=== PATIENT | male | born 1940 | race Caucasian/White ===

== ENCOUNTER 2017-05-09 08:40 | Emergency (ER) | payer MEDICARE, BC ==
[2017-05-09 08:49] VITALS: BP 142/79
--- NOTE | 2017-05-09 09:08 | UC ---
Ear Complaint HPI - HPI Summary HPI Summary: Right ear plugged sensation. he has had cerumen impaction of that right ear in the past as well. no drainage or serious pain. - History of Current Complaint Chief Complaint: UCEar Stated Complaint: RIGHT EAR COMPLAINT Time Seen by Provider: 05/09/17 08:58 Hx Obtained From: Patient Onset/Duration: Gradual Onset, Lasting Days Severity Initially: Mild Severity Currently: Mild Aggravating Factors: Nothing Alleviating Factors: Nothing Associated Signs/Symptoms: Positive: Hearing Loss. Negative: Discharge, Trauma to Ear, URI Symptoms - Allergies/Home Medications Allergies/Adverse Reactions: Allergies Allergy/AdvReac Type Severity Reaction Status Date / Time No Known Allergies Allergy Verified 05/09/17 08:49 PMH/Surg Hx/FS Hx/Imm Hx Previously Healthy: No - prior cerumen impaction. - Surgical History Surgical History: Yes Surgery Procedure, Year, and Place: left knee torn meniscus. back surgery - Family History Known Family History: Positive: Other - no ent related history. - Social History Alcohol Use: None Substance Use Type: None Smoking Status (MU): Never Smoked Tobacco - Immunization History Most Recent Influenza Vaccination: no Most Recent Pneumonia Vaccination: 2017 Review of Systems ENT: Other - right ear "plugged." All Other Systems Reviewed And Are Negative: Yes Physical Exam Triage Information Reviewed: Yes Appearance: Well-Appearing, No Pain Distress, Well-Nourished Vital Signs: Initial Vital Signs Temp 98.3 F 05/09/17 08:46 Pulse 72 05/09/17 08:46 Resp 16 05/09/17 08:46 BP 142/79 05/09/17 08:46 Pulse Ox 98 05/09/17 08:46 Vital Signs Reviewed: Yes Eye Exam: Normal Eyes: Positive: Conjunctiva Clear ENT: Positive: Pharynx normal, Other: - right ear canal inflammed and cerumen impaction.. Negative: Pharyngeal erythema, Nasal congestion, Tonsillar swelling , Tonsillar exudate, Trismus Neck exam: Normal Neck: Positive: Supple, Nontender, No Lymphadenopathy Respiratory Exam: Normal Respiratory: Positive: Lungs clear, Normal breath sounds, No respiratory distress, No accessory muscle use Cardiovascular: Positive: RRR, No Murmur, Pulses Normal Abdomen Description: Positive: Nontender, No Organomegaly, Soft Musculoskeletal: Positive: Strength Intact, ROM Intact, No Edema Neurological: Positive: Alert, Muscle Tone Normal. Negative: Fatigued Skin Exam: Normal Skin: Positive: rashes Ear Complaint Course/Dx - Differential Dx/Diagnosis Provider Diagnoses: right otitis externa. right cerumen impaction Discharge - Discharge Plan Condition: Good Disposition: HOME Prescriptions: Neomyc/Polym/HC 1% OTIC SUSP* [Cortisporin Otic Susp 1%*] 4 drop RIGHT EAR QID # 1 btl Patient Education Materials: Otitis Externa (ED), Cerumen Impaction (ED) Referrals: Ari Duke MD [Primary Care Provider] - If Needed
== END 2017-05-09 09:26 | disposition home or self-care (01) ==
LOC: UCCORT 08:40
DX: H61.21 Impacted cerumen, right ear (principal); H60.91 Unspecified otitis externa, right ear
CPT/HCPCS: 99203; G0463

== ENCOUNTER 2017-05-11 08:30 | Emergency (ER) | payer MEDICARE, BC ==
[2017-05-11 08:39] VITALS: BP 154/96
--- NOTE | 2017-05-11 08:52 | UC ---
Ear Complaint HPI - HPI Summary HPI Summary: 76 year old male with ear complaint. PT SEEN 2 DAYS AGO FOR RIGHT EAR PAIN. PT PRESENTS TODAY FOR B/L EAR PAIN AND DECREASED HEARING. RIGHT EAR PAINFUL WITH CHEWING. Had irrigation multiple times 2 days ago and placed on ear drops and not improved. Now with left ear decreased hearing as well. No vertigo. No CAN. No falls. No drainage. [ End ] - History of Current Complaint Chief Complaint: UCEar Stated Complaint: BILATERAL EAR PAIN Time Seen by Provider: 05/11/17 08:48 Hx Obtained From: Patient Onset/Duration: Gradual Onset Severity Initially: Moderate Associated Signs/Symptoms: Positive: Hearing Loss - Allergies/Home Medications Allergies/Adverse Reactions: Allergies Allergy/AdvReac Type Severity Reaction Status Date / Time No Known Allergies Allergy Verified 05/11/17 08:39 PMH/Surg Hx/FS Hx/Imm Hx Previously Healthy: Yes - Surgical History Surgical History: Yes Surgery Procedure, Year, and Place: left knee torn meniscus. back surgery - Family History Known Family History: Positive: Other - no ent related history. - Social History Occupation: Retired Alcohol Use: None Substance Use Type: None Smoking Status (MU): Never Smoked Tobacco - Immunization History Most Recent Influenza Vaccination: no Most Recent Pneumonia Vaccination: 2017 Review of Systems ENT: Ear Ache, Other - hearing loss All Other Systems Reviewed And Are Negative: Yes Physical Exam Triage Information Reviewed: Yes Appearance: Well-Appearing, No Pain Distress, Well-Nourished Vital Signs: Initial Vital Signs Temp 98.1 F 05/11/17 08:32 Pulse 64 05/11/17 08:32 Resp 20 05/11/17 08:32 BP 154/96 05/11/17 08:32 Pulse Ox 97 05/11/17 08:32 Vital Signs Reviewed: Yes Eye Exam: Normal ENT Exam: Normal ENT: Positive: TM dull - left with moderate serous effusion but no wax in canal or injection in TM., TM red - Right with significant ear canal edema and tenderness to exam with otoscope. with the narrow canal could only inspect pinpoint aspect of canal which appeared injected. Dental Exam: Normal Neck exam: Normal Neck: Positive: 1 Respiratory Exam: Normal Cardiovascular Exam: Normal Musculoskeletal Exam: Normal Neurological Exam: Normal Psychological Exam: Normal Skin Exam: Normal Ear Complaint Course/Dx - Course Course Of Treatment: He was not awarwe he was referred to ENT previously -- now he is aware and we set up appt for Sunday afternoon. Start orals and cont drops. - Differential Dx/Diagnosis Differential Diagnosis/HQI/PQRI: Cerumen Impaction, Otitis Externa, Otitis Media Provider Diagnoses: Right AOM / Swimmers Ear with hearing loss Discharge - Discharge Plan Condition: Good Disposition: HOME Prescriptions: Amoxicillin PO (*) [Amoxicillin 875 MG (*)] 875 mg PO BID #20 tab Patient Education Materials: Hearing Loss (ED) Referrals: Ari Duke MD [Primary Care Provider] - 4 Days Brian Pickett MD [Medical Doctor] - 3 Days (Sunday at 3 pm for your ENT Specialist appointment ) Additional Instructions: You have been referred to ENT. Please go to your appt. Finish your prescribed medications please.
== END 2017-05-11 09:03 | disposition home or self-care (01) ==
LOC: UCCORT 08:30
DX: H66.91 Otitis media, unspecified, right ear (principal); H60.339 Swimmer's ear, unspecified ear; H91.90 Unspecified hearing loss, unspecified ear
CPT/HCPCS: 99212; G0463

== ENCOUNTER 2018-11-28 08:21 | Emergency (ER) | payer MEDICARE, BC ==
--- NOTE | 2018-11-28 08:46 | UC ---
Abdominal Pain Male HPI - HPI Summary HPI Summary: Patient presented to urgent care with 2-3 days of progressive gnawing epigastric , right upper quadrant pain. Pt unable to described pain type. Patient states he's never had anything like this before. It does wake him up at night. Patient with mild nausea but is eating and drinking okay. No change in pain with diet. Patient with a normal formed nonblack and nonbloody bowel movement this morning. No urinary symptoms. No radiation. Patient without history of anything similar. No trauma. Patient has taken 2 doses of Aleve without improvement. Patient also reports some left lower back pain but does not seem to connect the abdominal pain. No history of similar. No belching. Patient denies chest pain or shortness of breath. Pain is worse with lying flat. He states it does wake him up at night. She is on no prescribed medications. - History of Current Complaint Stated Complaint: UPSET STOMACH, BACK PAIN Hx Obtained From: Patient Onset/Duration: Gradual Onset Severity Initially: Moderate Severity Currently: Moderate Pain Intensity: 6 - Allergies/Home Medications Allergies/Adverse Reactions: Allergies Allergy/AdvReac Type Severity Reaction Status Date / Time seasonal Allergy Eyes Uncoded 11/28/18 08:48 Itchy/Swollen/Red/Watery Home Medications: Home Medications Levocetirizine Dihydrochloride [Xyzal] 5 mg PO DAILY 11/28/18 [History Confirmed 11/28/18] Naproxen Sodium [Aleve] 440 mg PO ONCE 11/28/18 [History Confirmed 11/28/18] PMH/Surg Hx/FS Hx/Imm Hx Previously Healthy: Yes - Surgical History Surgical History: Yes Surgery Procedure, Year, and Place: left knee torn meniscus. back surgery - Family History Known Family History: Positive: Other - no ent related history., Non- Contributory - Social History Occupation: Retired Lives: With Family Alcohol Use: None Substance Use Type: None Smoking Status (MU): Never Smoked Tobacco - Immunization History Most Recent Influenza Vaccination: no Most Recent Pneumonia Vaccination: 2017 Review of Systems All Other Systems Reviewed And Are Negative: Yes Constitutional: Positive: Negative Skin: Positive: Negative Eyes: Positive: Negative ENT: Positive: Negative Respiratory: Positive: Negative Cardiovascular: Positive: Negative Gastrointestinal: Positive: Abdominal Pain, Nausea. Negative: Diarrhea Genitourinary: Positive: Negative Physical Exam - Summary Physical Exam Summary: Vital Signs Reviewed: Yes A+Ox3, no distress Eyes: Conjunctiva Clear, PHYLICIA. EOM intact and full ENT: Hearing grossly normal TM x 2 clear, mmoist, uvula midline, no exudate, no erythema Neck: Positive: Supple Respiratory: Positive: No respiratory distress, No accessory muscle use + CTA throughout no w/r Cardiovascular: RRR nl s1, s2 no m/r CBT <2 sec abd soft +/decreased BS + TTP epigastric, RUQ pain no guarding, no rebound, no CVA. no mass, no pulsation Musculoskeletal Exam: BENNETT x 4 without difficulty Strength Intact, ROM Intact Neurological: Positive: Alert, + sensation throughout Psychological: Positive: Normal Response To Family Skin: Positive: no rash, no ecchymosis Triage Information Reviewed: Yes Diagnostics - EKG Cardiac Rate: NL - 58 Cardiac Rhythm: Sinus: Normal ST Segment: Normal EKG Comparison: Other - no old for comparison Abd Pain Male Course/Dx - Course Course Of Treatment: Patient presents with 2-3 days progressive epigastric right upper quadrant. Patient's taken Aleve without improvement. Patient with mild nausea but no vomiting. Patient denies fevers or chills. No belching. Patient without any urinary symptoms or diarrhea. On exam vital signs are stable. Patient does have epigastric right upper quadrant pain is worse with movement and direct palpation. No rebound or guarding. Differential includes gastritis, cholecystitis, pancreatitis. Recommend patient to emergency department for further evaluation treatment. Patient states agreement and understanding of plan. Patient states he was going to go there originally but decided to come here first. Spoke to the ED provider, Dr. Davis, who is aware patient's coming. Of note I did do an EKG that was non-concerning for acute process BP elevated - pt in discomfort -related to condition - Differential Dx/Clinical Impression Provider Diagnosis: Epigastric abdominal pain Discharge - Sign-Out/Discharge Documenting (check all that apply): Patient Departure All imaging exams completed and their final reports reviewed: No Studies - Discharge Plan Condition: Stable Disposition: HOME-RECOMMEND TO ED Patient Education Materials: Acute Abdominal Pain (ED) Referrals: Ari Duke MD [Primary Care Provider] - Additional Instructions: The doctor that evaluated you today thinks that you need additional testing that can be completed the emergency department. It is recommended that you go directly to emergency department for further evaluation. This evaluation may include blood work or imaging. This testing will be directed and decided by the provider that evaluate you at the emergency department. If pain becomes worse, you feel lightheaded, you have uncontrolled vomiting, or you have any other concerns while you are being driven to emergency department as recommended to pullover and contact 911. - Billing Disposition and Condition Condition: STABLE Disposition: Home-Recommend to ED
[2018-11-28 08:47] VITALS: BP 154/79
== END 2018-11-28 09:10 | disposition home health service (06) ==
LOC: UCCORT 08:21
DX: R10.13 Epigastric pain (principal); R10.9 Unspecified abdominal pain; J30.2 Other seasonal allergic rhinitis
CPT/HCPCS: 93005; 99212; G0463

== ENCOUNTER 2018-12-07 08:48 | Emergency (ER) | payer MEDICARE, BC ==
--- OUTSIDE RECORDS SUMMARY | 2018-12-07 08:55 | XMS REPORT | Continuity of Care Document ---
:1940 External Reference #:[id number] Author Name Candido Van Care Team Providers Name Role Phone Ari Dkue MD Primary Care Physician Unavailable Payers Date Identification Numbers Payment Provider Subscriber Effective: 2005 Policy Number: [id number] Medicare Francisco J Rangel Group Name: Medicare [address] PayID: [id number] [place] [address] Policy Number: [id number] [facility] Marietta Rangel PayID: [id number] [address] [place] [address] Policy Number: [id number] [facility] Francisco J Rangel Group Name: [facility] [address] PayID: [id number] [place] [address] Advance Directives Description No Information Available Problems Active Problems Provider Date Chronic otitis externa Christiano Pickett M.D. Onset: 05/14/2017 Benign prostatic hypertrophy without Onset: 03/12/2015 outflow obstruction Lateral epicondylitis Onset: 02/05/2012 Gastroesophageal reflux disease Onset: 02/05/2013 Family History Date Family Member(s) Observation Comments General No Current Problems Father due to Heart Attack Mother do to Aneurysm Social History Type Date Description Comments Sex Unknown Marital Status Lives With Occupation Retired Tobacco Use Start: Unknown Never Smoked Cigarettes Tobacco Use Start: Unknown Never Smoked Cigars Tobacco Use Start: Unknown Never Smoked A Pipe Smokeless Tobacco Never Used Smokeless Tobacco ETOH Use Denies alcohol use Tobacco Use Reviewed: 03/02/17 Patient has never smoked Smoking Status Reviewed: 05/14/17 Patient has never smoked Exercise Type/Frequency Does not exercise Allergies, Adverse Reactions, Alerts Description No Known Drug Allergies Medications Active Medications SIG Qnty Indications Ordering Provider Date Neomycin/Polymyxin/Hydr 3 drops 3 times Unknown ocortisone (Otic) daily for 3 days Suspension Sucralfate Take 1 Tablet By Unknown 1gm Tablets Mouth AT 7:30Am, 11:30Am, 4:30PM, And 9:00PM Pantoprazole Sodium Take 1 Tablet By Unknown 40mg Mouth Every Day Tablets DR Metronidazole Take 1 Tablet By Unknown 500mg Tablets Mouth Every 8 Hours Methocarbamol Take 1 Tablet By Unknown 500mg Tablets Mouth Twice A Day as Needed For Muscle Pain Amlodipine Besylate Take 1 Tablet By Ari 10mg Mouth Every Day MD Srikanth Tablets History Medications Amoxicillin/Clavulanate 1 by mouth 20tabs H60.8x1 Christiano 05/14/2017 - Potassium twice a day [facility]ett 12/03/2018 875-125mg Tablets Loratadine 1 by mouth 30tabs 477.9 Ari 12/04/2014 - 10mg Tablets every day MD Srikanth 02/22/2015 Stendra use daily as 3tabs 607.84 Ari 02/18/2014 - 200mg Tablets needed MD Srikanth 12/04/2014 Viagra use daily 6tabs Ari 02/05/2013 - 100mg Tablets prn MD Srikanth 02/18/2014 Motrin Ib as needed 60tabs Unknown - 200mg Tablets 05/13/2017 Augmentin one by mouth Unknown - 875-125mg Tablets every 12 12/03/2018 hours for ten days started 4 days ago Ibuprofen take 1 Unknown - 600mg Tablets tablet by 12/04/2014 mouth four times a day with food for pain Immunizations CPT Code Status Date Vaccine Lot # [id number] Given 03/02/2017 Pneumococcal Conjugate Vaccine 13 Valent For Intramuscular Use [id number] Given 02/05/2012 Pneumonia Vaccine [id number] Given 02/05/2012 Tdap - Tetanus/Diptheria/Acellular Pertussis Vital Signs Date Vital Result Comment 12/03/2018 10:55am Weight 210.00 lb Heart Rate 74 /min BP Systolic 144 mmHg BP Diastolic 70 mmHg Respiratory Rate 16 /min O2 % BldC Oximetry 98 % room air 03/14/2018 10:08am Height 69 inches Weight 202.00 lb Heart Rate 48 /min BP Systolic 154 mmHg BP Diastolic 70 mmHg Respiratory Rate 16 /min BMI (Body Mass Index) 29.8 kg/m2 05/14/2017 3:15pm Weight 202.00 lb Heart Rate 96 /min BP Systolic Sitting 148 mmHg BP Diastolic Sitting 82 mmHg Respiratory Rate 16 /min O2 % BldC Oximetry 96 % 03/02/2017 8:23am Height 68.25 inches Weight 200.50 lb Heart Rate 56 /min BP Systolic 122 mmHg BP Diastolic 68 mmHg Respiratory Rate 16 /min Body Temperature 97.0 F BMI (Body Mass Index) 30.3 kg/m2 03/01/2016 11:11am Height 68.25 inches Weight 206.00 lb Heart Rate 68 /min BP Systolic 146 mmHg BP Diastolic 80 mmHg Respiratory Rate 16 /min Body Temperature 97.9 F BMI (Body Mass Index) 31.1 kg/m2 02/22/2015 8:57am Height 68 inches Weight 198.00 lb Heart Rate 56 /min BP Systolic 126 mmHg BP Diastolic 72 mmHg Respiratory Rate 16 /min Body Temperature 97.7 F BMI (Body Mass Index) 30.1 kg/m2 12/04/2014 8:09am Weight 208.50 lb BP Systolic 136 mmHg BP Diastolic 80 mmHg 02/18/2014 1:10pm Height 67.75 inches Weight 199.50 lb Heart Rate 76 /min BP Systolic 108 mmHg BP Diastolic 70 mmHg Respiratory Rate 16 /min Body Temperature 97.8 F BMI (Body Mass Index) 30.6 kg/m2 02/05/2014 1:38pm Height 70 inches 5'10" Weight 200.00 lb Heart Rate 54 /min BP Systolic 155 mmHg BP Diastolic 84 mmHg BMI (Body Mass Index) 28.7 kg/m2 02/05/2013 8:19am Height 68 inches Weight 198.00 lb Heart Rate 68 /min BP Systolic 130 mmHg BP Diastolic 74 mmHg Respiratory Rate 16 /min Body Temperature 97.5 F BMI (Body Mass Index) 30.1 kg/m2 02/05/2012 8:25am Height 68 inches Weight 195.50 lb Heart Rate 76 /min BP Systolic 126 mmHg BP Diastolic 72 mmHg Respiratory Rate 16 /min Body Temperature 97.4 F BMI (Body Mass Index) 29.7 kg/m2 Results Test Date Facility Test Result H/L Range Note Laboratory test 03/14/2018 N2N/CCD Import Prostate 12.00 ng/mL 1, 2 finding Specific Antigen Basic Metabolic 03/14/2018 N2N/CCD Import Anion Gap 4 mEq/L Low 8-16 Panel BUN 23 mg/dL High 7-18 BUN/Creat 23.0 ratio Calcium 9.0 mg/dL 8.5-10.1 Carbon Dioxide 29 mmol/L 21-32 Chloride 106 mmol/L 98-107 Creatinine 1.0 mg/dL 0.6-1.3 Glom Filtration Rate, Estimate >60 mL/min Glucose 94 mg/dL 74-106 If >60 mL/min 3 Potassium 4.0 mmol/L 3.5-5.1 Sodium 139 mmol/L 136-145 CBC 03/14/2018 N2N/CCD Import Hematocrit 42.0 % 38-48 Hemoglobin 13.9 gm/dL 12.8-17 Mean Cell Volume 90.1 fl 80-96 Mean Corpuscular HGB 29.8 pg 27-33 Mean Corpuscular HGB Conc 33.1 g/dL 31.7-36 Mean Platelet Volume 10.1 fL 6.6-10.6 Platelet Count 302 K/uL 155-360 Red Blood Count 4.66 M/uL 4.2-5.8 Red Cell Distri Width %CV 15.2 % 11.6-15.8 White Blood Count 10.1 K/uL 3.4-10.5 LDL Cholesterol Profile 03/14/2018 N2N/CCD Import Cholesterol 202 mg/dL High 4 HDL Cholesterol 48 mg/dL 5 LDL-Cholesterol 137 mg/dL 6 Triglycerides 83 mg/dL 7 Laboratory test 03/05/2017 N2N/CCD Import Prostate 9.17 ng/mL 8, 9 finding Specific Antigen Basic Metabolic 03/05/2017 N2N/CCD Import Anion Gap 5 mEq/L Low 8-16 Panel BUN 16 mg/dL 7-18 BUN/Creat 17.7 ratio Calcium 8.8 mg/dL 8.5-10.1 Carbon Dioxide 28 mmol/L 21-32 Chloride 106 mmol/L 98-107 Creatinine 0.9 mg/dL 0.6-1.3 Glom Filtration Rate, Estimate >60 mL/min Glucose 92 mg/dL 74-106 If >60 mL/min 10 Potassium 4.1 mmol/L 3.5-5.1 Sodium 139 mmol/L 136-145 CBC 03/05/2017 N2N/[employer] Import Hematocrit 41.3 % 38-48 Hemoglobin 13.8 gm/dL 12.8-17 Mean Cell Volume 89.2 fl 80-96 Mean Corpuscular HGB 29.8 pg 27-33 Mean Corpuscular HGB Conc 33.4 g/dL 31.7-36 Mean Platelet Volume 10.6 fL 6.6-10.6 Platelet Count 288 K/uL 150-400 Red Blood Count 4.63 M/uL 4.2-5.8 Red Cell Distri Width %CV 14.9 % 11.6-15.8 White Blood Count 8.3 K/uL 3.4-10.5 LDL Cholesterol Profile 03/05/2017 N2N/[employer] Import Cholesterol 190 mg/dL 11 HDL Cholesterol 47 mg/dL 12 LDL-Cholesterol 125 mg/dL 13 Triglycerides 90 mg/dL 14 LDL Cholesterol Profile 03/02/2016 N2N/[employer] Import Cholesterol 217 mg/dL High 15 HDL Cholesterol 38 mg/dL Low 16 LDL-Cholesterol 154 mg/dL 17 Triglycerides 126 mg/dL 18 CBC 03/02/2016 N2N/[employer] Import Hematocrit 42.4 % 38-48 Hemoglobin 14.3 gm/dL 12.8-17 Mean Cell Volume 89.1 fl 80-96 Mean Corpuscular HGB 30.0 pg 27-33 Mean Corpuscular HGB Conc 33.7 g/dL 31.7-36 Mean Platelet Volume 10.6 fL 6.6-10.6 Platelet Count 331 K/uL 150-400 Red Blood Count 4.76 M/uL 4.2-5.8 Red Cell Distri Width %CV 14.8 % 11.6-15.8 White Blood Count 8.9 K/uL 3.4-10.5 Basic Metabolic Panel 03/02/2016 N2N/[employer] Import Anion Gap 6 mEq/L Low 8- 16 BUN 19 mg/dL High 7-18 BUN/Creat 17.2 ratio Calcium 9.1 mg/dL 8.5-10.1 Carbon Dioxide 26 mmol/L 21-32 Chloride 104 mmol/L 98-107 Creatinine 1.1 mg/dL 0.6-1.3 Glom Filtration Rate, Estimate >60 mL/min Glucose 86 mg/dL 74-106 If >60 mL/min 19 Potassium 4.2 mmol/L 3.5-5.1 Sodium 136 mmol/L 136-145 Laboratory test 12/04/2014 N2N/CCD Import Prostate 9.25 ng/mL 20 finding Specific Antigen Laboratory test 02/19/2014 N2N/CCD Import Prostate 7.70 ng/mL High 0-4 21 finding Specific Antigen Basic Metabolic 02/19/2014 N2N/CCD Import Anion Gap 11 mEq/L 8-16 Panel BUN 20 mg/dL 5-23 BUN/Creat 25.0 ratio Calcium 9.5 mg/dL 8.5-10.1 Carbon Dioxide 25 mEq/L 18-29 Chloride 107 mmol/L 98-107 Creatinine 0.8 mg/dL 0.5-1.4 Glom Filtration Rate, Estimate >60 mL/min Glucose 89 mg/dL 76-115 If >60 mL/min 22 Potassium 4.0 mmol/L 3.5-5.1 Sodium 139 mmol/L 136-145 CBC 02/19/2014 N2N/CCD Import Hematocrit 39.4 % 38-48 Hemoglobin 13.4 gm/dL 12.8-17 Mean Cell Volume 90.6 fl 80-96 Mean Corpuscular HGB 30.8 pg 27-33 Mean Corpuscular HGB Conc 34.0 g/dL 31.7-36 Mean Platelet Volume 10.4 fL 6.6-10.6 Platelet Count 298 K/uL 150-400 Red Blood Count 4.35 M/uL 4.2-5.8 Red Cell Distri Width %CV 14.9 % 11.6-15.8 White Blood Count 7.7 K/uL 3.4-10.5 LDL Cholesterol Profile 02/19/2014 N2N/CCD Import Cholesterol 200 mg/dL 120-200 HDL Cholesterol 42 mg/dL 29-83 LDL-Cholesterol 142 mg/dL 62-185 Triglycerides 79 mg/dL 16-231 CBC 02/11/2013 N2N/CCD Import Hematocrit 42.7 % 38-48 Hemoglobin 14.6 gm/dL 12.8-17 Mean Cell Volume 88.2 fl 80-96 Mean Corpuscular HGB 30.2 pg 27-33 Mean Corpuscular HGB Conc 34.2 g/dL 31.7-36 Mean Platelet Volume 9.8 fL 6.6-10.6 Platelet Count 321 K/uL 150-400 Red Blood Count 4.84 M/uL 4.2-5.8 Red Cell Distri Width %CV 14.5 % 11.6-15.8 White Blood Count 8.9 K/uL 3.4-10.5 Comprehensive Metabolic Panel 02/11/2013 N2N/CCD Import Alb/Glob 1.1 ratio Albumin 3.8 g/dL 3.5-5 Alkaline Phosphatase 86 U/L 50-136 Anion Gap 11 mEq/L 8-16 BUN 17 mg/dL 5-23 BUN/Creat 17.0 ratio Bilirubin,Total 0.6 mg/dL 0.2-1.2 Calcium 9.2 mg/dL 8.5-10.1 Carbon Dioxide 28 mEq/L 18-29 Chloride 105 mmol/L 98-107 Creatinine 1.0 mg/dL 0.5-1.4 Globulin 3.5 g/dL 1.9-4.3 Glom Filtration Rate, Estimate >60 mL/min Glucose 87 mg/dL 76-115 If >60 mL/min 23 Potassium 3.8 mmol/L 3.5-5.1 SGPT/Alt 26 U/L Low 30-65 Sgot/Ast 19 U/L 16-40 Sodium 140 mmol/L 136-145 Total Protein 7.3 g/dL 6.3-8 LDL Cholesterol 02/11/2013 N2N/CCD Import Cholesterol 214 mg/dL High 120- 200 Profile HDL Cholesterol 39 mg/dL 29-83 LDL-Cholesterol 158 mg/dL 62-185 Triglycerides 87 mg/dL 16-231 PSA (Free and Total) 06/04/2012 N2N/CCD Import %Free PSA 22.8 % 24 PSA,Free 2.14 N/Ang/mL 25 Prostate-specific antigen,Seru 9.4 ng/mL High 0-4 26 Laboratory test 02/05/2012 N2N/CCD Import Prostate Specific 4.84 ng/mL High 0-4 27 finding Antigen 1 E78.5, R97.20, Z00.00 2 THIS ASSAY IS NOT INTENDED A CANCER SCREENING TEST The concentration of PSA in a given specimen, determined with assays from different manufacturers, can vary due to differences in assay methods and reagent specificity. Values obtained from different assay methods cannot be used interchangeably. Method: [employer] System[employer] Chemiluminescent immunoassay. 3 Note: Persistent reduction for 3 months or more in an eGFR <60 mL/min/1.73 m2 defines CKD. Patients with eGFR values >/=60 mL/min/1.73 m2 may also have CKD if evidence of persistent proteinuria is present. The original MDRD equation for estimated GFR is not valid for patients less than 18 years of age. Additional information may be found at www.kdoqi.org. 4 Reference Guidelines*: Desirable: ........... < 200 mg/dL Borderline High: ..... 200-239 mg/dL High: ................ >=240 mg/dL * The National Cholesterol Education Program (NCEP) 5 Reference Guidelines*: Low HDL: ..... < 40 mg/dL Normal: ..... 40-60 mg/dL Desirable: ... > 60 mg/dL *The National Cholesterol Education Program(NCEP) 6 Reference Guidelines*: Optimal:........... <100 mg/dL Near Optimal....... 100-129 mg/dL Borderline High.... 130-159 mg/dL High............... 160-189 mg/dL Very High.......... >=190 mg/dL * Source: National Cholesterol Education Program (NCEP) 7 Reference Guidelines*: Normal: ............. < 150 mg/dL Borderline High: .... 150-199 mg/dL High: ............... 200-499 mg/dL Very High: .......... > 500 mg/dL * Source: National Cholesterol Education Program (NCEP) 8 Z12.5,E78.5,Z00.01 9 THIS ASSAY IS NOT INTENDED A CANCER SCREENING TEST The concentration of PSA in a given specimen, determined with assays from different manufacturers, can vary due to differences in assay methods and reagent specificity. Values obtained from different assay methods cannot be used interchangeably. Method: [employer] [place] Chemiluminescent immunoassay. 10 Note: Persistent reduction for 3 months or more in an eGFR <60 mL/min/1.73 m2 defines CKD. Patients with eGFR values >/=60 mL/min/1.73 m2 may also have CKD if evidence of persistent proteinuria is present. The original MDRD equation for estimated GFR is not valid for patients less than 18 years of age. Additional information may be found at www.kdoqi.org. 11 Reference Guidelines*: Desirable: ........... < 200 mg/dL Borderline High: ..... 200-239 mg/dL High: ................ >=240 mg/dL * The National Cholesterol Education Program (NCEP) 12 Reference Guidelines*: Low HDL: ..... < 40 mg/dL Normal: ..... 40-60 mg/dL Desirable: ... > 60 mg/dL *The National Cholesterol Education Program(NCEP) 13 Reference Guidelines*: Optimal:........... <100 mg/dL Near Optimal....... 100-129 mg/dL Borderline High.... 130-159 mg/dL High............... 160-189 mg/dL Very High.......... >=190 mg/dL * Source: National Cholesterol Education Program (NCEP) 14 Reference Guidelines*: Normal: ............. < 150 mg/dL Borderline High: .... 150-199 mg/dL High: ............... 200-499 mg/dL Very High: .......... > 500 mg/dL * Source: National Cholesterol Education Program (NCEP) 15 Reference Guidelines*: Desirable: ........... < 200 mg/dL Borderline High: ..... 200-239 mg/dL High: ................ >=240 mg/dL * The National Cholesterol Education Program (NCEP) 16 Reference Guidelines*: Low HDL: ..... < 40 mg/dL Normal: ..... 40-60 mg/dL Desirable: ... > 60 mg/dL *The National Cholesterol Education Program(NCEP) 17 Reference Guidelines*: Optimal:........... <100 mg/dL Near Optimal....... 100-129 mg/dL Borderline High.... 130-159 mg/dL High............... 160-189 mg/dL Very High.......... >=190 mg/dL * Source: National Cholesterol Education Program (NCEP) 18 Reference Guidelines*: Normal: ............. < 150 mg/dL Borderline High: .... 150-199 mg/dL High: ............... 200-499 mg/dL Very High: .......... > 500 mg/dL * Source: National Cholesterol Education Program (NCEP) 19 Note: Persistent reduction for 3 months or more in an eGFR <60 mL/min/1.73 m2 defines CKD. Patients with eGFR values >/=60 mL/min/1.73 m2 may also have CKD if evidence of persistent proteinuria is present. The original MDRD equation for estimated GFR is not valid for patients less than 18 years of age. Additional information may be found at www.kdoqi.org. 20 THIS ASSAY IS NOT INTENDED A CANCER SCREENING TEST The concentration of PSA in a given specimen, determined with assays from different manufacturers, can vary due to differences in assay methods and reagent specificity. Values obtained from different assay methods cannot be used interchangeably. 21 THIS ASSAY IS NOT INTENDED A CANCER SCREENING TEST The concentration of PSA in a given specimen, determined with assays from different manufacturers, can vary due to differences in assay methods and reagent specificity. Values obtained from different assay methods cannot be used interchangeably. 22 Note: Persistent reduction for 3 months or more in an eGFR <60 mL/min/1.73 m2 defines CKD. Patients with eGFR values >/=60 mL/min/1.73 m2 may also have CKD if evidence of persistent proteinuria is present. The original MDRD equation for estimated GFR is not valid for patients less than 18 years of age. Additional information may be found at www.kdoqi.org. 23 Note: Persistent reduction for 3 months or more in an eGFR <60 mL/min/1.73 m2 defines CKD. Patients with eGFR values >/=60 mL/min/1.73 m2 may also have CKD if evidence of persistent proteinuria is present. The original MDRD equation for estimated GFR is not valid for patients less than 18 years of age. Additional information may be found at www.kdoqi.org. 24 The table below lists the probability of prostate cancer for men with non-suspicious [place] results and total PSA between 4 and 10 ng/mL, by patient age (Mickey et al, ANTOINE 1998, 279:1542). % Free PSA 50-64 yr 65-75 yr 0.00-10.00% 56% 55% 10.01-15.00% 24% 35% 15.01-20.00% 17% 23% 20.01-25.00% 10% 20% >25.00% 5% 9% Please note: Mickey et al did not make specific recommendations regarding the use of percent free PSA for any other population of men. Performed at: - [facility] [id number] Sightseeing Guide: Tresa Mars MD, Phone: [phone] Rodney ECLIA methodology. 26 [place] ECLIA methodology. According to the [place] [employer], Serum PSA should decrease and remain at undetectable levels after radical prostatectomy. The AUA defines biochemical recurrence as an initial PSA value 0.2 ng/mL or greater followed by a subsequent confirmatory PSA value 0.2 ng/mL or greater. Values obtained with different assay methods or kits cannot be used interchangeably. Results cannot be interpreted as absolute evidence of the presence or absence of malignant disease. 27 THIS ASSAY IS NOT INTENDED A CANCER SCREENING TEST The concentration of PSA in a given specimen, determined with assays from different manufacturers, can vary due to differences in assay methods and reagent specificity. Values obtained from different assay methods cannot be used interchangeably. Procedures Date Code Description Status 02/05/2013 89581 Visual funct screen test, automated Completed 02/05/2013 57166 Pure Tone-Air Condition Only Completed 02/05/2012 81882 Visual funct screen test, automated Completed 02/05/2012 98028 Pure Tone-Air Condition Only Completed 01/31/2011 28305 Visual funct screen test, automated Completed 01/31/2011 97553 Pure Tone-Air Condition Only Completed 06/23/2009 35649 Remove Impacted Cerumen Completed 12/26/2006 66372 Admin Of Inj 2008 Only Completed Encounters Type Date Location Provider Dx Diagnosis Office Visit 05/14/2017 [facility] H[facility].8x1 Other otitis externa, 3:00p C[facility]us[facility] right ear [place] Office Visit 02/05/2014 [facility], 715.96 Osteoarthrosis Unspec 1:00[facility] C.MFrancisco Lower Leg Plan of Treatment Future Appointment(s):03/17/2019 8:15 am - Ari Duke MD at [facility] [place] [facility]
[2018-12-07 09:03] VITALS: BP 116/60
--- NOTE | 2018-12-07 09:29 | UC ---
Knee Pain HPI - HPI Summary HPI Summary: left knee pain x 2 days , sudden onset pain is severe 8 out of 10 , no radiation of the pain , worse with standing and walking , better with rest and elevation no known injury , + swelling, no redness, no hx of Gout - History of Current Complaint Chief Complaint: UCLowerExtremity Stated Complaint: LEFT KNEE INJURY Time Seen by Provider: 12/07/18 09:03 Hx Obtained From: Patient Onset/Duration: Gradual Onset, Lasting Days - 2, Still Present Severity Initially: Severe Severity Currently: Severe Pain Intensity: 8 Character: Aching Aggravating Factor(s): Movement, Weight Bearing, Prolonged Standing Alleviating Factor(s): Rest Associated Signs And Symptoms: Positive: Swelling. Negative: Redness, Bruising , Fever, Weakness, Numbness, Tingling - Allergies/Home Medications Allergies/Adverse Reactions: Allergies Allergy/AdvReac Type Severity Reaction Status Date / Time seasonal Allergy Eyes Uncoded 12/07/18 08:58 Itchy/Swollen/Red/Watery PMH/Surg Hx/FS Hx/Imm Hx - Additional Past Medical History Additional PMH: pancreatitis - Surgical History Surgical History: Yes Surgery Procedure, Year, and Place: left knee torn meniscus. back surgery - Family History Known Family History: Positive: Other - no ent related history., Non- Contributory - Social History Alcohol Use: None Substance Use Type: None Smoking Status (MU): Never Smoked Tobacco - Immunization History Most Recent Influenza Vaccination: no Most Recent Pneumonia Vaccination: 2017 Review of Systems All Other Systems Reviewed And Are Negative: Yes Constitutional: Positive: Negative Skin: Positive: Negative Eyes: Positive: Negative ENT: Positive: Negative Respiratory: Positive: Negative Is Patient Immunocompromised?: No Physical Exam Triage Information Reviewed: Yes Appearance: Well-Nourished, Pain Distress Vital Signs: Initial Vital Signs Temp 98.2 F 12/07/18 08:59 Pulse 62 12/07/18 08:59 Resp 18 12/07/18 08:59 BP 116/60 12/07/18 08:59 Pulse Ox 97 12/07/18 08:59 Vital Signs Reviewed: Yes Eye Exam: Normal Eyes: Positive: Conjunctiva Clear ENT: Positive: Normal ENT inspection, Hearing grossly normal, Pharynx normal Neck: Positive: Supple, Nontender, No Lymphadenopathy Respiratory: Positive: Chest non-tender, Lungs clear, Normal breath sounds Cardiovascular: Positive: RRR, No Murmur, Pulses Normal Musculoskeletal: Positive: Other: - left knee : + swelling, mild effusion, diffuse tenderness, no erythema, , pain with flexion and extension, stable ligaments , Diagnostics - Radiology No standard instances Radiology Interpretation Completed By: Radiologist Summary of Radiographic Findings: xray left knee : IMPRESSION: Chondrocalcinosis. Degenerative changes medial compartment left knee. Knee Pain Course/Dx - Differential Dx/Diagnosis Provider Diagnosis: Left knee pain Discharge - Sign-Out/Discharge Documenting (check all that apply): Patient Departure All imaging exams completed and their final reports reviewed: Yes - Discharge Plan Condition: Stable Disposition: HOME Prescriptions: predniSONE TAB* [Deltasone 20 MG TAB*] 40 mg PO DAILY #14 tab Patient Education Materials: Gout (ED), Knee Pain (ED) Referrals: Jameson Paiz MD [Medical Doctor] - 7 Days Ari Duke MD [Primary Care Provider] - Additional Instructions: left knee pain / ? gout cont. with rest, ice , elevation will start Prednisone 40 mg daily will have your Follow up with Ortho if your symptoms are not improving in one week - Billing Disposition and Condition Condition: STABLE Disposition: Home
== END 2018-12-07 09:49 | disposition home or self-care (01) ==
LOC: UCCORT 08:48
DX: M25.562 Pain in left knee (principal); Z91.09 Other allergy status, other than to drugs and biological substances
CPT/HCPCS: 99212; G0463

== ENCOUNTER 2019-04-07 13:46 | Emergency (ER) | payer MEDICARE, BC ==
--- OUTSIDE RECORDS SUMMARY | 2019-04-07 14:25 | XMS REPORT | Continuity of Care Document ---
:1940 External Reference #:[id number] Author Name Ari Duke MD (transmitted by agent of provider Ladan Vega) Address [address] [place] [address] Care Team Providers Name Role Phone Andrea King MD - Internal Care Team Information [employer] Ari Duke MD - Family Care Team Information [employer] Problems Active Problems Provider Date Chronic otitis externa Christiano Pickett M.D. Onset: 05/14/2017 Benign prostatic hypertrophy without Onset: 03/12/2015 outflow obstruction Lateral epicondylitis Onset: 02/05/2012 Gastroesophageal reflux disease Onset: 02/05/2013 Social History Type Date Description Comments Sex Unknown Tobacco Use Start: Unknown Never Smoked Cigarettes Tobacco Use Start: Unknown Never Smoked Cigars Tobacco Use Start: Unknown Never Smoked A Pipe Smokeless Tobacco Never Used Smokeless Tobacco ETOH Use Denies alcohol use Tobacco Use Reviewed: 03/02/17 Patient has never smoked Smoking Status Reviewed: 03/26/19 Patient has never smoked Exercise Type/Frequency Does [...] 10mg Mouth Every Day MD Srikanth Tablets Immunizations CPT Code Status Date Vaccine Lot # 88889 Given 03/02/2017 Pneumococcal Conjugate Vaccine 13 Valent For Intramuscular Use 92845 Given 02/05/2012 Pneumonia Vaccine [id number] Given 02/05/2012 Tdap - Tetanus/Diptheria/Acellular Pertussis Vital Signs Date Vital Result Comment 03/26/2019 9:30am Height 68.25 inches 5'8.25" Weight 204.00 lb Heart Rate 74 /min BP Systolic 156 mmHg BP Diastolic 86 mmHg Respiratory Rate 16 /min O2 % BldC Oximetry 98 % room air BMI (Body Mass Index) 30.8 kg/m2 12/03/2018 10:55am Weight 210.00 lb Heart Rate 74 /min BP Systolic 144 mmHg BP Diastolic 70 mmHg Respiratory Rate 16 /min O2 % BldC Oximetry 98 % room air Results Description No Information Available Procedures Description No Information Available Medical Devices Description No Information Available Encounters Type Date Location Provider Dx Diagnosis Office Visit 12/03/2018 [facility] Ari [email or web address] Acute pancreatitis 10:45a MD Srikanth with infected necrosis, unspecified Assessments Date Code Description Provider 03/26/2019 Z00.00 Encounter for general adult medical Ari Duke MD examination without abnormal findings 03/26/2019 Z12.11 Encounter for screening for malignant Ari Duke MD neoplasm of colon 03/26/2019 Z12.5 Encounter for screening for malignant Ari Duke MD neoplasm of prostate 12/03/2018 K85.92 Acute pancreatitis with infected necrosis, Ari Duke MD unspecified Plan of Treatment Future Appointment(s):03/31/2020 8:15 am - Ari Duke MD at [facility]03/26/2019 - Ari Duke MDZ00.00 Encounter for general adult medical examination without abnormal findingsNew Labs:Basic Metabolic Panel, Ordered: 03/26/19CBC Auto Diff, Ordered: 03/26/19Lipid Profile (Trig/Chol /HDL), Ordered: 03/26/19Z12.11 Encounter for screening for malignant neoplasm of rljgcH71.5 Encounter for screening for malignant neoplasm of prostateNew Labs :PSA Screening, Ordered: 09/04/19 Functional Status Description No Information Available Mental Status Description No Information Available Referrals Description No Information Available
[2019-04-07 15:07] VITALS: BP 141/69
--- NOTE | 2019-04-07 15:17 | UC ---
General HPI - HPI Summary HPI Summary: pain to his L inner knee with some swelling since last pt. denies hx injury. it began after he walked around a large car show this weekend. no fever. hx meniscal injury same knee. he had surgery on the knee. pt was here a year ago for something similar and had OA on xray. he did not f/u with orthopedics. - History of Current Complaint Chief Complaint: UCLowerExtremity Stated Complaint: LEFT KNEE COMPLAINT Time Seen by Provider: 04/07/19 15:09 Hx Obtained From: Patient Pain Intensity: 8 Aggravating: walking Associated Signs & Symptoms: Positive: Edema - L knee. Negative: Fever, Weakness - Allergy/Home Medications Allergies/Adverse Reactions: Allergies Allergy/AdvReac Type Severity Reaction Status Date / Time seasonal Allergy Eyes Uncoded 04/07/19 15:08 Itchy/Swollen/Red/Watery PMH/Surg Hx/FS Hx/Imm Hx GI/ History: Other - pancreatitis - Surgical History Surgical History: Yes Surgery Procedure, Year, and Place: left knee torn meniscus. back surgery - Family History Known Family History: Positive: Other - no ent related history., Non- Contributory - Social History Alcohol Use: None Substance Use Type: None Smoking Status (MU): Never Smoked Tobacco - Immunization History Most Recent Influenza Vaccination: no Most Recent Pneumonia Vaccination: 2017 Review of Systems All Other Systems Reviewed And Are Negative: No Constitutional: Negative: Fever Skin: Negative: Rash Musculoskeletal: Positive: Edema - L knee. Negative: Decreased ROM Neurological: Negative: Weakness, Paresthesia, Numbness Physical Exam Triage Information Reviewed: Yes Appearance: Well-Appearing Vital Signs: Initial Vital Signs Temp 99 F 04/07/19 14:59 Pulse 56 04/07/19 14:59 Resp 18 04/07/19 14:59 BP 141/69 04/07/19 14:59 Pulse Ox 99 04/07/19 14:59 Vital Signs Reviewed: Yes Cardiovascular: Positive: RRR Musculoskeletal: Positive: Other: - LLE: hip, achilles, ankle and foot without deformity or tenderness. knee with mild anterior swelling but no warmth or rash. he is tender over the medial joint line only. No joint laxity. ROM is intact. leg has gross s/v/m function. Neurological: Positive: Alert Psychological: Positive: Age Appropriate Behavior Skin Exam: Normal Skin: Negative: Rashes Course/Dx - Course Course Of Treatment: Pt is refusing an xray citing he had one a year ago for the same thing and it showed arthritis. 2018 knee xray=medial deg changes. chodrocalcinosis - Differential Dx - Multi-Symptom Differential Diagnoses: Other - no concern for septic joint. no reason for fx. will tx with NSAID and orthopedic f/u. - Diagnoses Provider Diagnosis: Knee effusion, left, Left medial knee pain Discharge ED - Sign-Out/Discharge Documenting (check all that apply): Patient Departure All imaging exams completed and their final reports reviewed: No Studies - Discharge Plan Condition: Stable Disposition: HOME Prescriptions: Naproxen TAB* [Naprosyn 375 mg TAB*] 375 mg PO BID 5 Days #10 tab Patient Education Materials: Swollen Knee Joint (ED), Meniscus Tear (ED) Referrals: Jameson Paiz MD [Medical Doctor] - As Soon As Possible Additional Instructions: FOLLOW UP WITH ORTHOPEDICS, TODAYS VISIT IS NO SUBSTITUTE. - Billing Disposition and Condition Condition: STABLE Disposition: Home
== END 2019-04-07 15:49 | disposition home or self-care (01) ==
LOC: UCCORT 13:46
DX: M25.462 Effusion, left knee (principal)
CPT/HCPCS: 99212; G0463